=== PATIENT | male | born 1995 | race African-American/Black ===

== ENCOUNTER 2019-08-09 01:34 | Emergency (ER) | payer OTHER ==
[~2019-08-09] VITALS: Ht 180.3 cm; Wt 99.8 kg
[2019-08-09] MEDS: OLANZAPINE 5 MG TABLET PO ONE (02:00)
--- NOTE | 2019-08-09 02:00 | NUR ---
BIB EMS & [employer] C/O BIZARRE BEHAVIOR, SLOW TO RESPOND/ REFUSING TO ANSWER QUESTIONS. POSS OD PER EMS REPORT. PT WAS PLACED ON A MONITOR. VSS.
[2019-08-09 02:10] LABS: BASOPHILS # (AUTO) 0.1 /CMM (0.0-0.2); BASOPHILS % (AUTO) 1.8 % (0.0-2.0); EOSINOPHILS % (AUTO) 3.6 % (0.0-6.0); HEMATOCRIT 39 % (39-51); HEMOGLOBIN 13.3 g/dL (13.5-17.5); LYMPHOCYTES # (AUTO) 0.7 /CMM (0.8-4.8); LYMPHOCYTES % (AUTO) 9.8 % (20.0-44.0); MEAN CORPUSCULAR HGB CONC 34 g/dl (31.0-36.0); MEAN CORPUSCULAR VOLUME 82 fL (80-96); MONOCYTES # (AUTO) 0.3 /CMM (0.1-1.30); MONOCYTES % (AUTO) 4.7 % (2.0-12.0); NEUTROPHILS # (AUTO) 5.5 /CMM (1.8-8.9); NEUTROPHILS % (AUTO) 80.1 % (43.0-81.0); PLATELET COUNT (AUTO) 170 /CMM (150-450); RED BLOOD CELL COUNT(AUTO) 4.72 MIL/uL (4.5-6.0); WHITE BLOOD COUNT (AUTO) 6.8 K/uL (4.3-11.0)
[2019-08-09 02:15] LABS: CALCIUM, SERUM 9.3 mg/dL (8.5-10.1); CARBON DIOXIDE 26 mmol/L (21-32); CHLORIDE 101 mmol/L (98-107); GLUCOSE 143 mg/dL (74-106); POTASSIUM 3.4 mmol/L (3.5-5.1); SODIUM SERUM 139 mmol/L (136-145); UREA NITROGEN, BLOOD 12 mg/dL (7-18)
[2019-08-09 02:29] LABS: ALANINE AMINOTRANSFERASE 80 U/L (12-78); ALBUMIN 4.1 g/dL (3.4-5.0); ALCOHOL, BLOOD < 3 mg/dL (0-0); ALKALINE PHOSPHATASE 174 U/L (46-116); ASPARTATE AMINOTRANSFERASE 24 U/L (15-37); BILIRUBIN,DIRECT 0.1 mg/dL (0.0-0.2); BILIRUBIN,TOTAL 0.3 mg/dL (0.2-1.0); TOTAL PROTEIN, SERUM 7.6 g/dL (6.4-8.2)
[2019-08-09 02:30] LABS: ACETAMINOPHEN 0 ug/ml (10-30); SALICYLATE 2.4 mg/dL (2.8-20.0)
--- NOTE | 2019-08-09 03:06 | NUR ---
Patient is resting comfortably in bed with eyes closed. Easily aroused. VSS
[2019-08-09] MEDS ORDERED: OLANZAPINE 5 MG TABLET ONE (04:23)
[2019-08-09 05:46] LABS: APPEARANCE,URINE Clear (CLEAR); BILIRUBIN,URINE Negative (NEGATIVE); BLOOD, URINE Negative Ery/uL (NEGATIVE); COLOR,URINE Yellow (YELLOW); KETONES,URINE 15 (NEGATIVE); LEUKOCYTE ESTERASE ,URINE Negative (NEGATIVE); NITRITE, URINE Negative (NEGATIVE); PROTEIN,URINE 30 mg/dl (NEGATIVE); UGLUCOSE Negative (NEGATIVE); UROBILINOGEN,URINE 0.2 EU/dL (0.2)
--- NOTE | 2019-08-09 05:50 | NUR ---
URINE COLLECTED AND SENT TO LAB
[2019-08-09 06:14] LABS: BACTERIA,URINE None seen /HPF (None Seen); RBC,URINE 0-2 /HPF (0-2); SQUAMOUS EPITHELIAL CELL,UR 0-2 /HPF (None Seen); WBC,URINE 0-2 /HPF (0-3)
--- NOTE | 2019-08-09 08:41 | NUR ---
Social service consult requested by MD for possible OD and bizarre behavior. Per MD notes and chart review, pt is a 24-year-old male brought in by EMS from the street where he was acting bizarrely. Patient states that he is hearing voices telling to kill himself. No medical complaints at this time. GLASS PRODUCTS INSPECTOR met with the pt bedside in ED. GLASS PRODUCTS INSPECTOR introduced self, explained the role of the SW and purpose of the visit. Pt is alert and oriented x 3. Pt is not very cooperative with SW during the assessment. Pt refuses to state where he lives or if he is homeless. Pt reports he has Schizophrenia and is hearing voices telling him to "kill himself". Pt is requesting to go voluntary to a psychiatric hospital. Pt is refusing to answer any further questions and stated, " go away, I told you what I am going to do". GLASS PRODUCTS INSPECTOR contacted [facility] and initiated voluntary admission at [facility]. GLASS PRODUCTS INSPECTOR will fax clinicals to [facility] intake dept. Sewage Treatment Plant Operator is available, as needed. GLASS PRODUCTS INSPECTOR updated MD and CRN Gener regarding pt's discharge disposition.
--- NOTE | 2019-08-09 09:52 | NUR ---
Clinicals faxed to [facility] intake dept.
--- NOTE | 2019-08-09 11:40 | NUR ---
AT BEDSIDE FOR EVAL.
--- NOTE | 2019-08-09 11:52 | NUR ---
Patient given written and verbal discharge instructions. Patient verbalizes understanding of instructions. Patient is ambulatory with steady gait. Refuses offer of fci placement. Patient given list of available shelters in surrounding area.
[2019-08-09 11:53] VITALS: BP 121/73
== END 2019-08-09 12:01 | disposition home or self-care (01) ==
LOC: ER 01:35
DX: R46.1 Bizarre personal appearance (principal); R45.851 Suicidal ideations
CPT/HCPCS: 36415; 80048; 80076; 80305; 80307; 80329; 81001; 85025; 99284; A6403; G0480; 81000-TC

== ENCOUNTER 2019-08-09 12:56 | Emergency (ER) | payer OTHER ==
[~2019-08-09] VITALS: Ht 180.3 cm; Wt 99.3 kg
--- NOTE | 2019-08-09 13:09 | NUR ---
Pt was evaluated earlier today and referred to [facility]. ENROBING MACHINE OPERATOR contacted [facility] at [facility] intake and informed her that pt. is still needing voluntary admission. Cristela to f/u with SW. Face sheet faxed per her request.
--- NOTE | 2019-08-09 13:32 | NUR ---
CALLIE FROM A BUS STOP. TO ER BED 12. DROWSY, ARROUSABLE AND ORIENTED. NOT IN RESP DISTRESS. BROUGHT IN BECAUSE PASSERBY CALLED 911 D/T PAIN IS UNABLE TO AMBULATE. PT WAS JUST DISCHARGED FROM THIS HOSPITAL SEVERAL HOURS AGO. PT WAS SUPPOSED TO BE ADMITTED VOLUNTARILY BUT LATER VERBALIZED THAT HE IS NO LONGER SUICIDAL AND GOT DC TO HOME. PT IS DENYING ANY THOUGHT IS SUICIDE DURING THIS VISIT. WAS AT BEDSIDE FOR EVAL. PT IS BEING MONITOR VISUALLY.
--- NOTE | 2019-08-09 14:38 | NUR ---
ROM followed up with Cristela at [facility] intake. Per Cristela, pt left [facility] with [employer]. [employer] brought the pt. to [facility] ED. Per Cristela, [facility] declined the pt for [place] stating, he is more a candidate for a 5150 Hold. She referred the pt to [facility] and is awaiting feedback and acceptance. [facility] informed ROM, there is a waitlist at [facility] at this time. ROM updated KRYSTYNA Luu in ED. Cristela also stated all pts coming to [facility] will need a Covid-19 test. ROM informed her to call ED CRN Gener and inform him.
--- NOTE | 2019-08-09 15:09 | NUR ---
CALLED SO RESIN MAKER.
--- NOTE | 2019-08-09 15:11 | NUR ---
SO CALLED BACK, WILL BE IN WITHIN THE HOUR.
--- NOTE | 2019-08-09 16:47 | NUR ---
PT IN BED SLEEPING. NO DISRESS NOTED.
--- NOTE | 2019-08-09 17:30 | NUR ---
KRYSTYNA RIZZO AT BEDSIDE FOR EVAL.
--- NOTE | 2019-08-09 18:15 | NUR ---
Patient discharged to home in stable condition. Written and verbal after care instructions given. Patient verbalizes understanding of instruction. Pt ambulatory with a steady gait w/ aide of crutches. Pt provided transportedtion back to his half-way living.
[2019-08-09 18:16] VITALS: BP 136/77
== END 2019-08-09 18:17 | disposition home or self-care (01) ==
LOC: ER 12:59
DX: R46.1 Bizarre personal appearance (principal)
CPT/HCPCS: 36415; 80048-TC; 80076-TC; 80305; 81000-TC; 85025-TC

== ENCOUNTER 2019-08-09 21:10 | Emergency (ER) | payer OTHER ==
[~2019-08-09] VITALS: Ht 180.3 cm; Wt 99.3 kg
[2019-08-09 22:19] LABS: BASOPHILS % (AUTO) 0.5 % (0.0-2.0); EOSINOPHILS % (AUTO) 0.8 % (0.0-6.0); HEMATOCRIT 41 % (39-51); HEMOGLOBIN 14.1 g/dL (13.5-17.5); LYMPHOCYTES # (AUTO) 1.5 /CMM (0.8-4.8); LYMPHOCYTES % (AUTO) 27.2 % (20.0-44.0); MEAN CORPUSCULAR HGB CONC 34 g/dl (31.0-36.0); MEAN CORPUSCULAR VOLUME 83 fL (80-96); MONOCYTES # (AUTO) 0.4 /CMM (0.1-1.30); MONOCYTES % (AUTO) 7.3 % (2.0-12.0); NEUTROPHILS # (AUTO) 3.5 /CMM (1.8-8.9); NEUTROPHILS % (AUTO) 64.2 % (43.0-81.0); PLATELET COUNT (AUTO) 195 /CMM (150-450); RED BLOOD CELL COUNT(AUTO) 4.92 MIL/uL (4.5-6.0); WHITE BLOOD COUNT (AUTO) 5.4 K/uL (4.3-11.0)
[2019-08-09 22:28] LABS: CALCIUM, SERUM 9.8 mg/dL (8.5-10.1); CARBON DIOXIDE 27 mmol/L (21-32); CHLORIDE 102 mmol/L (98-107); CREATININE 0.9 mg/dL (0.6-1.3); GLUCOSE 82 mg/dL (74-106); POTASSIUM 3.7 mmol/L (3.5-5.1); SODIUM SERUM 139 mmol/L (136-145); UREA NITROGEN, BLOOD 11 mg/dL (7-18)
--- NOTE | 2019-08-09 22:32 | NUR ---
BIB TO ER BED 12. AAOX4. NOT IN RESP DISTRESS. PT WAS BROUGHT IN FOR BIZAARE BEHAVIOR EVIDENCED BY PT LYING ON A DRIVEWAY. PT WAS RECENTLY DISCHARGED TWICE FROM THE ER TODAY. PT DENIES SI NOR HI. PT DENIES HAVING VISUAL AND AUDITORY HALLUCINATION. WAS AT BEDSIDE FOR EVAL. WILL CONTINUE TO MONITOR.
[2019-08-09 22:37] LABS: ALANINE AMINOTRANSFERASE 74 U/L (12-78); ALBUMIN 4.3 g/dL (3.4-5.0); ALCOHOL, BLOOD < 3 mg/dL (0-0); ALKALINE PHOSPHATASE 183 U/L (46-116); ASPARTATE AMINOTRANSFERASE 56 U/L (15-37); BILIRUBIN,DIRECT 0.1 mg/dL (0.0-0.2); BILIRUBIN,TOTAL 0.4 mg/dL (0.2-1.0)
[2019-08-09 23:04] LABS: APPEARANCE,URINE Slightly Cloudy (CLEAR); BILIRUBIN,URINE SMALL (NEGATIVE); BLOOD, URINE Negative Ery/uL (NEGATIVE); COLOR,URINE Yellow (YELLOW); KETONES,URINE >=160 (NEGATIVE); LEUKOCYTE ESTERASE ,URINE Negative (NEGATIVE); NITRITE, URINE Negative (NEGATIVE); PROTEIN,URINE Trace mg/dl (NEGATIVE); UGLUCOSE Negative (NEGATIVE); UROBILINOGEN,URINE 0.2 EU/dL (0.2)
[2019-08-09 23:49] LABS: BACTERIA,URINE Rare /HPF (None Seen); RBC,URINE 0-2 /HPF (0-2); SQUAMOUS EPITHELIAL CELL,UR Rare /HPF (None Seen); WBC,URINE 0-2 /HPF (0-3)
--- NOTE | 2019-08-10 02:43 | NUR ---
PT SLEEPING AND RESTING COMFORTABLY IN BED. VSS. NO ACUTE DISTRESS NOTED. SITTER AT BESIDE FOR SAFETY
--- NOTE | 2019-08-10 04:41 | NUR ---
PT SLEEPING AND RESTING COMFORTABLY IN BED. VSS. NO ACUTE DISTRESS NOTED. SITTER AT BESIDE FOR SAFETY
--- NOTE | 2019-08-10 06:46 | NUR ---
PT AWAKE. VSS. NO ACUTE DISTRESS NOTED. SITTER AT BESIDE FOR SAFETY
--- NOTE | 2019-08-10 08:00 | NUR ---
breakfast tray provided, tolerated PO well
--- NOTE | 2019-08-10 09:31 | NUR ---
SPOKED TO [employer]ODUCT SALES REPRESENTATIVE OF THE PT, PER TSERING THEY CAN'T ACCEPT HIM BACK BECAUSE OF 3 SUICIDE ATTEMPT.
--- NOTE | 2019-08-10 09:35 | NUR ---
[employer] CLINICAL SUP OF PT [phone]
--- NOTE | 2019-08-10 10:50 | NUR ---
Patient given written and verbal discharge instructions. Patient verbalizes understanding of instructions. Patient assisted to lobby via wheelchair, crutches given back to the patient. patient given taxi voucher going to [facility]. Refuses offer of fci placement. Patient given list of available shelters in surrounding area. patient in proper clothing upon discharge, name band removed, all belongings returned to the patient.
[2019-08-10 10:54] VITALS: BP 121/68
--- NOTE | 2019-08-10 11:16 | NUR ---
SW met with the pt at bedside in the emergency room. Pt appears to be oriented x4 (time, place, situation and self). Pt appears to be in a depressed mood and presents with a flat affect. Pt presents in a bizarre state. Pts speech is slow and mumbled. Pt stated, "I am not feeling too good. I need more care." Pt has poor eye contact. Pt appears to be disheveled, ungroomed and malodorous. Pt presents in appropriate clothing. Pt appears to be shaking and trembling when spoken to. Pt states that he he is hearing voices in his head but denied both suicidal and homicidal ideation. Pt states that he lives in a facility with other men located at [address] [place] [address]. The pts nurse called the facility and informed the SW that the pt cannot return there. SW informed the pt and the pt stated that he was feeling suicidal and that he would walk into traffic. Pt stated that he would agree to be transferred to [facility] on a voluntary hold but the SW was informed that the pt is on their VIP list. KT consulted with her supervisor in circuit testing, Airam Markham LCSW, at this point. SW and supervisor in circuit testing spoke to the pt and presented the options of a homeless fdc or an alternative hospital to the pt and the pt stated that he would like to be provided with transportation to an alternative hospital. Pt chose [facility]. SW provided the pt with homeless resources that included a list of shelters, food [place], shower access, health clinics, mental health clinics and substance abuse referrals. Pt signed the homeless waiver and the SW presented the pt with a taxi voucher.
== END 2019-08-10 10:54 | disposition home or self-care (01) ==
LOC: ER 21:10
DX: R46.1 Bizarre personal appearance (principal)
CPT/HCPCS: 36415; 80048-TC; 80076-TC; 80305; 81000-TC; 85025-TC